=== PATIENT | female | born 1950 | race Caucasian/White ===

== ENCOUNTER → 2016-05-09 | Outpatient (CLI) | payer OTHER ==
[~2016-05-09] MED LIST: EPIN0.3P2 IM; LVT.05T PO; PHEN-640 PO; PRED20TA PO; SULF-228 PO; thyroid
[2016-05-09 16:30] LABS: BASOPHILS % (AUTO) 1 % (0-2); EOSINOPHILS # (AUTO) 0.2 10^3uL; EOSINOPHILS % (AUTO) 5 % (0-4); LYMPHOCYTES # (AUTO) 1.1 X10^3; MEAN CORPUSCULAR VOLUME 96 FL (80-100); MEAN PLATELET VOLUME 8.7 FL (6.0-9.5); MONOCYTES # (AUTO) 0.2 X10^3; MONOCYTES % (AUTO) 5 % (3-11); NEUTROPHILS # (AUTO) 2.9 X10^3; NEUTROPHILS % (AUTO) 64 % (51-67); PLATELET COUNT 225 10^3uL (150-450); WHITE BLOOD COUNT 4.47 10^3uL (4.0-11.0)
[2016-05-09 16:32] LABS: MEAN CORPUSCULAR HEMOGLOBIN 31.7 PG (26.0-34.0)
[2016-05-09 16:35] LABS: BILIRUBIN,URINE Negative (Negative); CLARITY,URINE Clear; COLOR,URINE Yellow; GLUCOSE, URINE (UA) Negative (Negative); LEUKOCYTE ESTERASE, URINE Negative (Negative); PH,URINE 6.5 (5.0 - 8.0); UROBILINOGEN,URINE 0.2 mg/dL (0.2-1.0)
[2016-05-09 16:42] LABS: ALBUMIN 3.9 g/dL (3.4-5.0); ALKALINE PHOSPHATASE 105 U/L (38-126); AMYLASE* 56 U/L (25-115); ANION GAP 11.5 MEQ/L (3-15); BUN/CREATININE RATIO 13 (10-20); CALCULATED IONIZED CALCIUM 3.9 mg/dL (3.8-4.6); CREATINE KINASE 112 U/L (30-135); LIPASE* 50 U/L (23-300); TOTAL PROTEIN 7.1 g/dL (6.4-8.5)
== END ==
LOC: LAB 16:17
PROVIDERS: ATTEND Family Medicine
DX: I10 Essential (primary) hypertension (principal); R07.9 Chest pain, unspecified
CPT/HCPCS: 36415; 80053; 81003; 82150; 82550; 82553; 83690; 84484; 85025; 87088

== ENCOUNTER → 2016-05-10 | Outpatient (CLI) | payer OTHER | LOC: RAD 17:21 | PROVIDERS: ATTEND Family Medicine | DX: M54.6 Pain in thoracic spine (principal); R93.6 Abnormal findings on diagnostic imaging of limbs | CPT/HCPCS: 71020; 73030 ==